=== PATIENT | male | born 1955 | race Two or more races ===

== ENCOUNTER 2021-12-24 06:20 | Day surgery (SDC) | payer OTHER | END 2021-12-24 09:35 | disposition home or self-care (01) | LOC: CIR.AMB 06:20 → AMB-ENDOS 06:20 → CIR.AMB 15:15 | PROVIDERS: ATTEND Surgery | DX: D12.5 Benign neoplasm of sigmoid colon (principal); Z20.822 Contact with and (suspected) exposure to COVID-19; E78.5 Hyperlipidemia, unspecified; I10 Essential (primary) hypertension; E10.9 Type 1 diabetes mellitus without complications; Z79.84 Long term (current) use of oral hypoglycemic drugs ==